=== PATIENT | male | born 1945 | race Hispanic/Latino ===

== ENCOUNTER 2018-01-01 21:14 | Inpatient (IN) | payer MEDICARE, OTHER ==
[2018-01-01 21:48] LABS: #Eosinphils 0.1 thou/uL (0.0-0.7); #Lymphocytes 1.6 thou/uL (1.20-3.40); #Monocytes 0.9 thou/uL (0.11-0.59); #Neutrophils 5.2 thou/uL (1.40-6.50); %Basophils 0.5 % (0.0-1.0); %Eosinophils 1.4 % (0.0-10.0); %Lymphocytes 20.7 % (21.0-51.0); %Monocytes 11.7 % (0.0-10.0); %Neutrophils 65.7 % (42.0-75.0); Hemoglobin 7.2 g/dL (14.0-18.0); Mean Corpuscular Hemoglobin 31.9 pg (27.0-31.0); Mean Corpuscular Volume 96.5 fL (78.0-98.0); Mean Platelet Volume 8.8 fL (7.4-10.4); Platelet Count 191 thou/uL (130-400); RBC Distribution Width 14.7 % (11.5-14.5); Red Blood Cell (RBC) Count 2.25 mill/uL (4.70-6.10); White Blood Cell (WBC) Count 7.9 thou/uL (4.8-10.8)
--- NOTE | 2018-01-01 22:02 | RAD ---
UPRIGHT PORTABLE CHEST ONE VIEW: 01/01/18 HISTORY: 72-year-old male with history of chest pain. Black and bright red stool for three days. Monitor leads overlie the chest. The heart size is normal. The lungs are clear. IMPRESSION: No acute intrathoracic disease. Atherosclerosis of the aorta. POS: RRE
[2018-01-01 22:08] LABS: ALT (SGPT) 12 U/L (8-55); AST (SGOT) 12 U/L (5-34); Albumin 3.1 g/dL (3.4-4.8); Alkaline Phosphatase 66 U/L (40-150); Anion Gap 15 mmol/L (10-20); BUN (Urea Nitrogen) 30 mg/dL (8.4-25.7); Bilirubin, Total 0.4 mg/dL (0.2-1.2); Calc. Creatinine Clearance 0 mL/min (70-130); Calcium 8.6 mg/dL (7.8-10.44); Carbon Dioxide 26 mmol/L (23-31); Chloride 98 mmol/L (98-107); Estimated GFR-MDRD 8; Globulin 3.6 g/dL (2.4-3.5); Glucose 115 mg/dL (83-110); Potassium 4.3 mmol/L (3.5-5.1); Protein, Total 6.7 g/dL (5.8-8.1); Sodium 135 mmol/L (136-145)
--- NOTE | 2018-01-01 23:25 | PDOC.FPRHP ---
- History of Present Illness Chief Complaint: rectal bleeding History of Present Illness: Patient is a 72YO gentleman with a PMH significant for DMII, CAD & ESRD on MWF HD who presented to the ED - History PMHx: PSHx: FHx: Social: - Vital signs BP: [] HR: [] RR: [] Tmax: [] Pox: []% on [] Wt: [] FMR H&P: Results - Labs Result Diagrams: 01/01/18 21:40 01/01/18 21:40 Lab results: WBC 7.9 thou/uL (4.8-10.8) 01/01/18 21:40 Hgb 7.2 g/dL (14.0-18.0) L 01/01/18 21:40 Hct 21.7 % (42.0-52.0) L 01/01/18 21:40 MCV 96.5 fL (78.0-98.0) 01/01/18 21:40 Plt Count 191 thou/uL (130-400) 01/01/18 21:40 Neutrophils % 65.7 % (42.0-75.0) 01/01/18 21:40 Sodium 135 mmol/L (136-145) L 01/01/18 21:40 Potassium 4.3 mmol/L (3.5-5.1) 01/01/18 21:40 Chloride 98 mmol/L (98-107) 01/01/18 21:40 Carbon Dioxide 26 mmol/L (23-31) 01/01/18 21:40 BUN 30 mg/dL (8.4-25.7) H 01/01/18 21:40 Creatinine 6.88 mg/dL (0.6-1.3) H 01/01/18 21:40 Glucose 115 mg/dL (83-110) H 01/01/18 21:40 Calcium 8.6 mg/dL (7.8-10.44) 01/01/18 21:40 Total Bilirubin 0.4 mg/dL (0.2-1.2) 01/01/18 21:40 AST 12 U/L (5-34) 01/01/18 21:40 ALT 12 U/L (8-55) 01/01/18 21:40 Alkaline Phosphatase 66 U/L (40-150) 01/01/18 21:40 Serum Total Protein 6.7 g/dL (5.8-8.1) 01/01/18 21:40 Albumin 3.1 g/dL (3.4-4.8) L 01/01/18 21:40 FMR H&P: Upper Level - Plan Date/Time: 01/01/18 8665 I, [], have evaluated this patient and agree with findings/plan as outlined by manufacturing intern resident. Pertinent changes/additions are listed here.
[2018-01-02 00:22] LABS: Iron 46 ug/dL (65-175); Iron Binding Capacity, Total 174 mcg/dL (261-462)
[2018-01-02] MEDS ORDERED: Dextrose 50% Abboject 50 ML SYRINGE SLOW IVP PRN (00:45)
[2018-01-02] MEDS ORDERED: Ondansetron PF 4 MG/2 ML Vial IVP PRN (00:45)
[2018-01-02] MEDS ORDERED: Dextrose 5% in Water 1,000 ML IV PRN (00:45)
[2018-01-02] MEDS ORDERED: Acetaminophen 650 MG in Premix Bag 1 BAG IVPB PRN (00:45)
[2018-01-02] MEDS ORDERED: Sodium Chloride 0.9% 1,000 ML IV SCH (00:45)
--- NOTE | 2018-01-02 00:45 | PDOC.EVN ---
Event Note - Event Note Event Note: Spoke w/ Dr. Genao who discussed patient's case with Nancy who has previously admitted the patient multiple times. Sound will now resume care.
[2018-01-02 01:11] VITALS: BMI 28.6
[2018-01-02 01:17] LABS: #Eosinphils 0.1 thou/uL (0.0-0.7); #Lymphocytes 1.5 thou/uL (1.20-3.40); #Monocytes 0.8 thou/uL (0.11-0.59); %Basophils 0.5 % (0.0-1.0); %Lymphocytes 20.2 % (21.0-51.0); %Monocytes 10.6 % (0.0-10.0); %Neutrophils 67.6 % (42.0-75.0); Hemoglobin 6.9 g/dL (14.0-18.0); Mean Corpuscular HGB CONC 32.8 g/dL (32.0-36.0); Mean Corpuscular Hemoglobin 31.7 pg (27.0-31.0); Mean Corpuscular Volume 96.5 fL (78.0-98.0); Mean Platelet Volume 9.3 fL (7.4-10.4); Platelet Count 197 thou/uL (130-400); RBC Distribution Width 14.5 % (11.5-14.5); Red Blood Cell (RBC) Count 2.18 mill/uL (4.70-6.10); White Blood Cell (WBC) Count 7.4 thou/uL (4.8-10.8)
[2018-01-02] MEDS: Lactated Ringer's 1,000 ML IV SCH ×2 (01:54→11:17)
[2018-01-02 04:46] LABS: Hemoglobin 7.9 g/dL (14.0-18.0); Mean Corpuscular Hemoglobin 31.8 pg (27.0-31.0); Mean Corpuscular Volume 96.4 fL (78.0-98.0); Mean Platelet Volume 9.2 fL (7.4-10.4); Platelet Count 165 thou/uL (130-400); RBC Distribution Width 14.1 % (11.5-14.5); Red Blood Cell (RBC) Count 2.49 mill/uL (4.70-6.10); White Blood Cell (WBC) Count 7.5 thou/uL (4.8-10.8)
[2018-01-02 04:55] LABS: Anion Gap 17 mmol/L (10-20); BUN (Urea Nitrogen) 32 mg/dL (8.4-25.7); Calc. Creatinine Clearance 10 mL/min (70-130); Calcium 8.2 mg/dL (7.8-10.44); Carbon Dioxide 21 mmol/L (23-31); Chloride 100 mmol/L (98-107); Estimated GFR-MDRD 7; Glucose 133 mg/dL (83-110); Potassium 4.7 mmol/L (3.5-5.1); Sodium 133 mmol/L (136-145)
[2018-01-02 04:58] LABS: Folate (Folic Acid) 15.7 ng/mL (7.0-31.4)
[2018-01-02] MEDS: Pantoprazole 40 MG VIAL IVP SCH ×2 (08:33→20:56)
[2018-01-02] MEDS ORDERED: Pantoprazole 40 MG VIAL IVP SCH (09:00)
[2018-01-02] MEDS ORDERED: Prevnar 13-Val Conj/PF 0.5 ML SYRINGE IM ONE (09:00)
[2018-01-02 09:22] LABS: Hemoglobin 7.4 g/dL (14.0-18.0); Mean Corpuscular HGB CONC 33.3 g/dL (32.0-36.0); Mean Corpuscular Hemoglobin 32.1 pg (27.0-31.0); Mean Corpuscular Volume 96.3 fL (78.0-98.0); Mean Platelet Volume 9.2 fL (7.4-10.4); Platelet Count 175 thou/uL (130-400); RBC Distribution Width 14.3 % (11.5-14.5)
--- NOTE | 2018-01-02 11:31 | HP ---
CHIEF COMPLAINT: Rectal bleeding. HISTORY OF PRESENT ILLNESS: This is a 72-year-old male with past medical history of TN, diabetes alexis litus type 2, hypertension presenting with bright red blood per rectum. Per the patient, he started taking medication that helps him move his bowels and since he started taking the medication, the sarahi ent states that he has been having bright red blood every time when he uses the bathroom. The patien t stated that it has been going on for the past couple of days and on the day of admission, the patie nt states that there was bright red blood in the bathroom and it was severe and this prompted the ED visit. The patient states that he was very worried that he might be losing all his blood. The patie nt endorses feeling very tired, otherwise denies any fever, nausea, vomiting, chest pain, palpitation , abdominal pain, hematuria, dysuria. Of note, the patient recently had pneumonia and NSTEMI and was sent to rehabilitation. Patient was started on aspirin and Plavix. REVIEW OF SYSTEMS: Positive for bright red blood per rectum and generalized weakness. Otherwise, as documented in HPI, all systems were reviewed and are negative. FAMILY HISTORY: Reviewed and noncontributory to this visit. PAST MEDICAL HISTORY: CAD, diabetes mellitus type 2, TN, hypertension. 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 PSYCHIATRIC HISTORY: No psychiatric history. SOCIAL HISTORY: The patient denies illicit drug use. The patient denies alcohol use. The patient d enies any smoking history. ALLERGIES: The patient does not have any drug allergies. CURRENT MEDICATIONS: The patient takes, 1. MiraLax 17 grams. 2. Protonix 40 mg. 3. Procardia 120 mg. 4. Levothyroxine 75 mcg. 5. Isosorbide mononitrate 30 mg. 6. Folic acid 1 mg. 7. Clopidogrel 75 mg. 8. Vitamin D3 1000 units. 9. Cefdinir 300 mg. 10. Carvedilol 3.125 b.i.d. 11. Calcium acetate 667 mg t.i.d. 12. Atorvastatin 20 mg. 12. Aspirin 81 mg. PHYSICAL EXAMINATION: VITAL SIGNS: Blood pressure is 118/50, pulse is 79, respiratory rate of 16, temperature of 98.9, oxy gen saturation of 100. GENERAL: Patient is lying in bed comfortably, does not appear to be in any acute distress. The sarahi ent is receiving packed red blood cells at this time. HEENT: Normocephalic, atraumatic. Pupils are equally, round and reactive to light. Extraocular mov ements are intact. No sclerae icterus. No conjunctival pallor. NECK: Trachea is midline. Full range of motion. No JVD. Supple. LUNGS: Clear to auscultation bilaterally. No wheezing, no rales, no rhonchi is appreciated. CARDIOVASCULAR: Positive S1, S2, regular rate and rhythm. No murmurs, no gallops or rubs appreciate d. ABDOMEN: Soft, nontender, nondistended. Positive bowel sounds in all quadrants. EXTREMITIES: The patient has 5/5 upper extremity strength, 5/5 lower extremity strength. Good sensa tion bilaterally in the upper and lower extremities. The patient has good pulses and no edema noted. NEUROLOGIC: Cranial nerves II through XII grossly intact. No neurologic deficits noted. SKIN: Warm, dry, and intact. No rashes noted. Patient do have some pale . PSYCHIATRIC: The patient is alert, oriented x3, very pleasant and normal affect. IMAGING: Chest x-ray shows no acute intrathoracic disease. LABORATORY DATA: WBC 7.9, hemoglobin is 7.2, hematocrit of 21.7, platelet count 191. Sodium is 135, potassium is 4.3, chloride is 98, carbon dioxide 26, anion gap of 15, BUN is 30, creatinine is 6.88, GFR of 8, glucose is 115, calcium is 8.6. Iron is 46, TIBC is 174. AST is 12, ALT is 12. ASSESSMENT AND PLAN: This is a 72-year-old male being admitted for: 1. Anemia of acute blood loss. The patient is having GI bleed at this time, most likely lower gastr ointestinal bleed. At this point, we have consulted GI. We will admit the patient n.p.o. We are go ing to follow up with GI's recommendations. We will continue the patient on IV fluids. . We will h old the patient's aspirin and Plavix. We will continue to monitor the patient closely. 2. Anemia of chronic disease. The patient will benefit from epoetin. We will follow up on ferritin levels. We will follow up with Nephrology's recommendations. 3. End-stage renal disease on hemodialysis on Friday, Wednesdays and Fridays. At this point, the yamilet pennington will undergo hemodialysis. 4. Diabetes mellitus type 2. We will continue insulin sliding scale. We will monitor the patient's blood glucose closely. We will adjust the patient's sliding scale accordingly. 5. History of hypertension. Currently, the patient's blood pressure is controlled. We will monitor the patient's blood pressure closely and we will give patient his home blood pressure medications. 6. Deep venous thrombosis and gastrointestinal prophylaxis.
[2018-01-02] MEDS ORDERED: GoLYTELY 4,000 ml Bottle PO SCH (18:00)
--- NOTE | 2018-01-02 18:11 | CON ---
DATE OF CONSULTATION: 01/02/2018 REASON FOR CONSULTATION: Melena, hematochezia. CONSULTING PHYSICIAN: Dr. Rogers Genao. HISTORY OF PRESENT ILLNESS: The patient is a 72-year-old male with past medical history of coronary artery disease, diabetes, recent NSTEMI, myocardial infarction, hypertension, and end-stage renal dis ease on hemodialysis who presented with complaints of hematochezia. Upon chart review, the patient w as recently admitted to the hospital and diagnosed with pneumonia and NSTEMI for which he was ultimat ilana placed on full anticoagulation and sent to rehabilitation after that particular visit. However, approximately 3 days ago he experienced the acute onset of bright red blood per rectum, characterized as blood present on the toilet paper and in the toilet with larger amounts of bright red blood, both coating and mixed in with the stool. He also endorses increased frequency of solid black stools ove r the last 3-5 days. They were easy to wipe and no difficulty with defecation. He further adds that he has been having approximately 1-3 solid to semisolid bowel movements over the last 3-4 days with the appearance of bright red blood with almost every bowel movement. Otherwise, he denies any furthe r symptoms including nausea, vomiting, fevers, chills, abdominal pain, hematemesis, dysphagia, odynop hagia, or weight loss. Of note, he was placed on both aspirin and Plavix for treatment of his NSTEMI with the appearance of the blood shortly after starting these medications. Of note, the patient's last colonoscopy was approximately 5 years ago and was normal per patient. He denies any family history of colon polyps or colon cancer. REVIEW OF SYSTEMS: A 10-category review of systems was obtained with all responses negative except f or the pertinent positives as listed in the HPI. PAST MEDICAL HISTORY: As per HPI. PAST SURGICAL HISTORY: Right below-knee amputation, left arm surgery, back surgery, umbilical hernia repair. FAMILY HISTORY: Denies any GI malignancies. SOCIAL HISTORY: Denies any tobacco, alcohol or illicit drug use. OUTPATIENT MEDICATIONS: Reviewed. ALLERGIES: No known drug allergies. PHYSICAL EXAMINATION: VITAL SIGNS: Temperature 98.3, pulse 81, blood pressure 113/54, respiratory rate 16, satting 98% on room air. GENERAL: The patient was lying in bed in no acute distress. He is alert and oriented x4. NECK: Supple. No JVD noted. CARDIOVASCULAR: Regular rate and rhythm with no discernible murmurs, gallops or rubs, although he di d have a slight systolic murmur radiating into the left arm consistent with the arteriovenous fistula for hemodialysis. PULMONARY: Clear to auscultation bilaterally with no discernible wheezes or rales. ABDOMEN: Normoactive bowel sounds, soft, nontender, nondistended. EXTREMITIES: No cyanosis, clubbing or edema. Right below-knee amputation noted. LABORATORY DATA: CBC with a white blood cell count of 7, hemoglobin 7.4, hematocrit 22.1, platelets 175. Chemistry with a sodium of 133, potassium 4.7, chloride 100, CO2 of 21, BUN 32, creatinine 7.29 , glucose 140, AST 12, ALT 12, alkaline phosphatase 66, total bilirubin 0.4. Serum iron 46, TIBC 174 . IMAGING DATA: Chest x-ray obtained on 01/01/2018 showed no acute intrathoracic process or disease, a rteriosclerosis of the aorta was noted. ASSESSMENT AND PLAN: The patient is a 72-year-old male with past medical history of coronary artery disease, status post myocardial infarction/[id number] myocardial infarction within the last 2 w eeks, diabetes, hypertension, and end-stage renal disease on hemodialysis, presenting with complaints of GI bleeding. GI bleeding: The patient was recently admitted to the hospital with diagnoses of pneumonia in both n [id number] myocardial infarction and ultimately placed on full anticoagulation with aspirin and Plavix. He was ultimately discharged to a rehab facility and while in the rehabilitation facility be randolph to notice darker black colored solid stools that was accompanied bright red blood per rectum, dori racterized more as bright red blood clots, seen either coating the stool or mixed in with the stool. He denies any other overt GI bleeding symptoms nor does he endorse any abdominal pain or change in h is bowel habits otherwise. Upon review of his iron indices, he does have anemia of chronic disease/r enal disease, but given his acute onset of the bleeding, it will not necessarily be reflected in lab as of yet. Given the dark black stools with very solid consistency, it is not necessarily reminiscen t of melenic type stools, but an upper GI bleeding source cannot be ruled out at this time. RECOMMENDATIONS: 1. We would continue to trend H&H and transfuse as necessary to maintain an H&H of 08/30. 2. Continue to monitor clinically for signs of active gastrointestinal bleeding. 3. We would place the patient on clear liquid diet tonight with GoLYTELY prep later on this evening in preparation for both EGD and colonoscopy tomorrow morning for evaluation of melena and hematochezi a respectively. 4. We would hold Plavix for now, but the patient will need to be placed back on this medication in t he near future given his recent history of NSTEMI. We will continue to follow. Please call with any questions.
[2018-01-02 19:58] LABS: #Eosinphils 0.1 thou/uL (0.0-0.7); #Lymphocytes 1.8 thou/uL (1.20-3.40); #Monocytes 1.1 thou/uL (0.11-0.59); #Neutrophils 9.5 thou/uL (1.40-6.50); %Basophils 0.2 % (0.0-1.0); %Eosinophils 0.6 % (0.0-10.0); %Lymphocytes 14.1 % (21.0-51.0); %Monocytes 8.4 % (0.0-10.0); %Neutrophils 76.7 % (42.0-75.0); Hemoglobin 6.9 g/dL (14.0-18.0); Mean Corpuscular HGB CONC 33.9 g/dL (32.0-36.0); Mean Corpuscular Hemoglobin 32.6 pg (27.0-31.0); Mean Corpuscular Volume 96.1 fL (78.0-98.0); Mean Platelet Volume 9.1 fL (7.4-10.4); Platelet Count 182 thou/uL (130-400); RBC Distribution Width 14.4 % (11.5-14.5); Red Blood Cell (RBC) Count 2.11 mill/uL (4.70-6.10); White Blood Cell (WBC) Count 12.4 thou/uL (4.8-10.8)
--- NOTE | 2018-01-02 23:33 | PDOC.PN ---
- Subjective Encounter Start Date: 01/02/18 Encounter Start Time: 19:00 Subjective: nsg notes rev, jesenia ovn, no new c/o, family at bedside, denies any abd pain/ -: cp/ sob at this point in time. no lightheadedness. roberto clear liq diet - Objective Resuscitation Status: Resuscitation Status FULL:Full Resuscitation Vital Signs & Weight: Vital Signs (12 hours) Temp Pulse Pulse Resp BP BP Pulse Ox 01/02/18 17:02 103 H 122/60 01/02/18 15:35 96.7 F L 100 16 158/67 H 95 Weight Weight 167 lb I&O: 01/01/18 01/02/18 01/03/18 06:59 06:59 06:59 Intake Total 350 887 Output Total 0 Balance 350 887 Result Diagrams: 01/03/18 01:46 01/02/18 04:14 Additional Labs: Accuchecks 01/02/18 01/02/18 01/02/18 20:41 16:48 05:31 POC Glucose 161 H 133 H 140 H Phys Exam - Physical Examination Constitutional: NAD seated in hospital bed HEENT: PERRLA, moist MMs Respiratory: no wheezing, no rales, no rhonchi, clear to auscultation bilateral Cardiovascular: RRR, no significant murmur, no rub Gastrointestinal: soft, non-tender, positive bowel sounds Neurological: moves all 4 limbs amputation noted Psychiatric: normal affect, A&O x 3 Dx/Plan - Plan * GIB * apprec GI c/s - plan for colo in AM, pt currently drinking prep w/o difficulty * closely monitor serial H/H Q8H (prev 4 H/H have remained stable s/p pRBC transfusion) * hemodynamically stable, clear liq diet * * hx CV dz incl CAD and AoS * continue with current regimen - home anticoagulation on HOLD 2/2 GIB above, will need cardiology rec for medication recommendation moving forward as pt has severe disease and was prev rec for med mgmt as a bridge to potential surg * * diet: clear liq diet * activity: as roberto * dvt ppx * * d/w pt and family at bedside Review of Systems - Medications/Allergies Allergies/Adverse Reactions: Allergies Allergy/AdvReac Type Severity Reaction Status Date / Time No Known Drug Allergies Allergy Verified 01/02/18 00:31 Medications: Current Medications Dextrose/Water (Dextrose 50%) 25 gm SLOW IVP PRN PRN PRN Reason: Hypoglycemia Glucagon (Glucagon) 1 mg IM PRN PRN PRN Reason: Hypoglycemia Acetaminophen 650 mg/ Device 65 mls @ 400 mls/hr IVPB Q6H PRN PRN Reason: Fever > 101 Stop: 01/03/18 00:46 Dextrose/Water (D5w) 1,000 mls @ 0 mls/hr IV .Q0M PRN PRN Reason: Hypoglycemia Insulin Human Regular (Humulin R) 0 units SC .MILD SLIDING SCALE PRN PRN Reason: Mild Correctional Scale Ondansetron HCl (Zofran) 4 mg IVP Q6H PRN PRN Reason: Nausea/Vomiting Pantoprazole Sodium (Protonix) 40 mg IVP Q12HR DERIAN Last Admin: 01/02/18 20:56 Dose: 40 mg Polyethylene Glycol/Electrolytes (Golytely) 4,000 ml PO 1800 DERIAN Stop: 01/02/18 23:59 Last Admin: 01/02/18 17:17 Dose: 4,000 ml Sodium Chloride (Flush - Normal Saline) 10 ml IVF PRN PRN PRN Reason: Saline Flush Last Admin: 01/02/18 08:33 Dose: 10 ml
[2018-01-03 02:22] LABS: #Lymphocytes 1.3 thou/uL (1.20-3.40); #Monocytes 0.8 thou/uL (0.11-0.59); #Neutrophils 5.7 thou/uL (1.40-6.50); %Basophils 0.3 % (0.0-1.0); %Eosinophils 0.5 % (0.0-10.0); %Lymphocytes 16.8 % (21.0-51.0); %Monocytes 10.3 % (0.0-10.0); %Neutrophils 72.1 % (42.0-75.0); Hemoglobin 5.8 g/dL (14.0-18.0); Mean Corpuscular HGB CONC 33.8 g/dL (32.0-36.0); Mean Corpuscular Hemoglobin 32.4 pg (27.0-31.0); Mean Corpuscular Volume 95.9 fL (78.0-98.0); Mean Platelet Volume 9.3 fL (7.4-10.4); Platelet Count 152 thou/uL (130-400); RBC Distribution Width 14.8 % (11.5-14.5); Red Blood Cell (RBC) Count 1.78 mill/uL (4.70-6.10); White Blood Cell (WBC) Count 7.9 thou/uL (4.8-10.8)
[2018-01-03] MEDS ORDERED: Epoetin (ESRD) 20,000 UNITS/ML SC SCH (09:00)
[2018-01-03] MEDS: Pantoprazole 40 MG VIAL IVP SCH ×2 (09:03→20:52)
[2018-01-03 10:04] LABS: #Eosinphils 0.1 thou/uL (0.0-0.7); #Monocytes 0.7 thou/uL (0.11-0.59); #Neutrophils 5.1 thou/uL (1.40-6.50); %Basophils 0.5 % (0.0-1.0); %Eosinophils 0.7 % (0.0-10.0); %Lymphocytes 13.9 % (21.0-51.0); %Monocytes 10.2 % (0.0-10.0); %Neutrophils 74.7 % (42.0-75.0); Hemoglobin 8.5 g/dL (14.0-18.0); Mean Corpuscular HGB CONC 33.7 g/dL (32.0-36.0); Mean Corpuscular Hemoglobin 31.7 pg (27.0-31.0); Mean Corpuscular Volume 94.2 fL (78.0-98.0); Mean Platelet Volume 9.5 fL (7.4-10.4); Platelet Count 127 thou/uL (130-400); RBC Distribution Width 13.7 % (11.5-14.5); Red Blood Cell (RBC) Count 2.69 mill/uL (4.70-6.10); White Blood Cell (WBC) Count 6.9 thou/uL (4.8-10.8)
[2018-01-03] MEDS ORDERED: ISOVUE-370 76%-LOCM 1 ML ONE (10:21)
[2018-01-03] MEDS ORDERED: Iopamidol 370 76% 50 ML VIAL FS ONE (10:21)
--- NOTE | 2018-01-03 11:30 | PRG ---
DATE OF SERVICE: 01/03/2018 SUBJECTIVE: The patient is seen and examined at bedside. OBJECTIVE: VITAL SIGNS: Blood pressure is 143/64, pulse 89, respirations 18, temperature 98.2. GENERAL: He is not in any distress during my visit. He does not complain about being weak and short of breath. He is still having some melena. HEENT: Atraumatic, normocephalic. Eyes are PERRLA. Sclerae is nonicteric. Conjunctivae pale. Ora l mucosa is moist. NECK: Supple. LUNGS: Clear. HEART: S1, S2 normal, no S3, no S4, no murmur. ABDOMEN: Soft, nontender, mildly distended. There is an umbilical hernia, not incarcerated. Bowel sounds are present, no organomegaly. EXTREMITIES: Right [id number] amputee. No swelling. NEUROLOGIC: He is alert and oriented x4. There are no any motor deficits. LABORATORY DATA: Showed hemoglobin of 7.8, hematocrit 17.1, white count of 7.9, platelet count is 15 2,000. Glycemia is ranging from 133-161. IMPRESSION: 1. Acute gastrointestinal bleeding, unclear source. The patient's hemoglobin is down to 5.8. He is getting transfused with packed red blood cells as we speak. He is going to have EGD and colonoscopy this morning. We will continue close monitorin. Diabetes mellitus, well-controlled. 3. Coronary artery disease, stable. 4. Hypertension. 5. History of myocardial infarction. 6. Anemia of chronic disease. So as I mentioned above, we will continue Protonix IV. He will be tr ansfused with 2 units of packed red blood cells and he will have colonoscopy and EGD this morning.
[2018-01-03] MEDS ORDERED: PROPOFOL 200 MG/20 ML VIAL ONE (11:59)
--- NOTE | 2018-01-03 13:53 | OP ---
DATE OF PROCEDURE: 01/03/2018 PROCEDURES: Esophagogastroduodenoscopy with biopsy, colonoscopy with biopsy. INDICATION FOR PROCEDURE: Hematochezia, melena. DESCRIPTION OF PROCEDURE: After the risks and benefits of the procedures were explained to the patie nt including risks of bleeding, infection, perforation, reactions to anesthesia, aspiration and/or pa in, informed consent was obtained. The patient was then taken to the endoscopy suite where deep pat tion was administered via propofol and anesthesia support. Once adequate sedation was achieved, the standard gastroscope was introduced into the mouth with intubation of the esophagus, stomach and prox imal small intestine with the findings listed below. Upon completion of this portion of the procedur e, all equipment was removed and the bed was then rotated to 180 degrees in preparation for the colon oscopy. After a digital rectal examination was performed. The standard colonoscope was introduced i nto the rectum and advanced to the terminal ileum without difficulty. The quality of the prep was go od, although there was some remaining liquid stool that was amenable to suctioning. The patient tole rated the procedures well with no immediate perioperative complications. After the conclusion of the colonoscopy, all equipment was removed and the patient was transferred to PACU in satisfactory condi tion. EGD FINDINGS: ESOPHAGUS. Normal-appearing mucosa was seen in the proximal and mid esophagus. A 5-6 mm linear ulce ration was seen in the distal esophagus extending proximally from the GE junction. It did exhibit mi ld friability and minimal blood clot formation, but no active or recent bleeding. There was minimall y increased erythema in this region as well, but no overt erosions or ulcerations were seen. STOMACH: Normal-appearing mucosa was seen in the gastric cardia, fundus, body, greater curvature and incisura; however, increased mucosal erythema as well as multiple erosions and what appeared to be a healing ulceration was seen in the gastric antrum. There was no evidence of active/recent bleeding or mass lesions in this region. Multiple biopsies were taken for evaluation of these abnormalities. DUODENUM: Normal-appearing mucosa was seen in both the duodenal bulb and second portion of the duode num. There was no evidence of erosions, ulcerations, mass lesions or active/recent bleeding. IMPRESSION: 1. LA grade B reflux mediated erosive esophagitis. 2. Multiple erosions and what appeared to be a healing ulceration seen in the gastric antrum concern ing for Helicobacter pylori versus non-steroidal anti-inflammatory drug gastritis. 3. No obvious source of melena was seen during this examination. COLONOSCOPY FINDINGS: DIGITAL RECTAL EXAM: Normal findings were seen on external examination. COLON FINDINGS: Normal-appearing mucosa was seen in the terminal ileum up to 10-15 cm past the ileoc ecal valve. Normal-appearing mucosa was seen at the ileocecal valve, appendiceal orifice, cecum and proximal ascending colon. However, at the junction of the ascending and transverse colons (hepatic f lexure), there was a focal area of circumferential increased mucosal erythema as well as small ulcera tions extending about 4-5 cm in length. Multiple biopsies were taken from this region for evaluation and placed in a specimen jar for pathology review. With the biopsies of this region, there was mini mal oozing of blood upon obtaining the biopsies consistent with probable ischemic colitis. Otherwise , the mid and distal transverse colons, descending colon, sigmoid colon and proximal rectum appeared normal; however, in the distal rectum, just past the anal verge, there were multiple large ulceration s, the largest being approximately 3-4 cm in length that exhibited friability with the passage of the colonoscope, but no overt active or recent bleeding. Multiple biopsies were then taken from this re gion as well for histological evaluation. On rectal retroflexion, there were small internal hemorrho ids noted. IMPRESSION: 1. Circumferential region of increased mucosal erythema and small ulceration seen at the hepatic fle xure consistent with ischemic colitis. 2. Multiple large ulcerations seen in the distal rectum also concerning for ischemic colitis versus possible infectious process. 3. Small internal hemorrhoids. RECOMMENDATIONS: 1. We would continue to trend H and H and transfuse as necessary to maintain an H and H of 7/21. 2. Continue to monitor clinically for signs of active gastrointestinal bleeding. 3. We would place the patient on a clear liquid diet and advance as tolerated to a high fiber diet o homero the next 24 hours. 4. I will obtain a CT angiography of the lower abdominal vessels for any stenosis or thrombosis that could potentially contribute to the ischemic colitis seen during examination today. 5. We will follow up on the biopsy results for further evaluation of ischemic colitis versus infecti on. No antibiotics are indicated at this time. 6. Would attempt to maintain normotensive pressures in this patient, especially with history of end- stage renal disease on hemodialysis. We will continue to follow. Please call with any questions.
[2018-01-03 18:00] LABS: #Eosinphils 0.1 thou/uL (0.0-0.7); #Lymphocytes 1.2 thou/uL (1.20-3.40); #Monocytes 0.8 thou/uL (0.11-0.59); #Neutrophils 5.2 thou/uL (1.40-6.50); %Basophils 0.5 % (0.0-1.0); %Eosinophils 1.2 % (0.0-10.0); %Lymphocytes 16.2 % (21.0-51.0); %Monocytes 11.4 % (0.0-10.0); %Neutrophils 70.7 % (42.0-75.0); Hemoglobin 8.1 g/dL (14.0-18.0); Mean Corpuscular HGB CONC 35.4 g/dL (32.0-36.0); Mean Corpuscular Hemoglobin 33.2 pg (27.0-31.0); Mean Corpuscular Volume 93.8 fL (78.0-98.0); Platelet Count 126 thou/uL (130-400); RBC Distribution Width 14.1 % (11.5-14.5); Red Blood Cell (RBC) Count 2.44 mill/uL (4.70-6.10); White Blood Cell (WBC) Count 7.3 thou/uL (4.8-10.8)
--- NOTE | 2018-01-03 21:20 | CT ---
CT ANGIOGRAM ABDOMEN AND PELVIS WITH AND WITHOUT IV CONTRAST WITH 3D RENDERIN01/03/18 HISTORY: 72-year-old male with history of hepatic flexor and rectum ulcers on recent colonoscopy, rectal bleed ing. Minimal interstitial and alveolar parenchymal changes in the right and left lower lobes possibly atypical pneumonia or pneumonitis versus some subsegmental atelectasis with small pleural effusions. Three vessel coronary artery calcific disease. The visualized liver, gallbladder, pancreas, spleen, adrenal glands, are unremarkable. The kidneys are very small bilaterally, but no evidence for hydrone phrosis. There is minimal focal wall thickening involving the right colon. Evidence for nonspecific c olitis. There is abnormal wall thickening of the rectum as well which is nonspecific. Minimal perirec jenni fat stranding as well as minimal fluid and edema changes in the presacral region. There is extens ella calcification of the aorta without evidence of an aneurysm. There is extensive diffuse vascular d isease with extensive calcification throughout the abdomen. 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 There is a patent inferior mesenteric artery. There are gladys ateral narrowed renal arteries. Prominent vascular calcifications of the common iliac and external il iac arteries. There is some minimal nonspecific fat stranding in the right groin. There is a 2.9 cm d iameter dense rim calcified mass at the level of the umbilicus which has a very chronic appeara nce and probably has been present for a long time. Evidence for anterior abdominal wall postsurgical changes. No abscess or significant abnormal fluid collection within the abdomen. IMPRESSION: Very high grade near occlusive changes of the origin of the celiac artery and the proximal superior m esenteric artery with a patent inferior mesenteric artery. Abnormal nonspecific wall thickening of th e right colon and rectum. Nonspecific fat stranding in the right groin. Patchy parenchymal changes in the right and left lower lung zones possibly minimal pneumonitis or subsegmental atelectasis with po ssibly small pleural effusions. POS: KG
[2018-01-04 02:14] LABS: #Eosinphils 0.1 thou/uL (0.0-0.7); #Lymphocytes 1.1 thou/uL (1.20-3.40); #Monocytes 0.8 thou/uL (0.11-0.59); #Neutrophils 6.2 thou/uL (1.40-6.50); %Basophils 0.4 % (0.0-1.0); %Eosinophils 1.3 % (0.0-10.0); %Lymphocytes 12.8 % (21.0-51.0); %Monocytes 9.8 % (0.0-10.0); %Neutrophils 75.7 % (42.0-75.0); Hemoglobin 8.4 g/dL (14.0-18.0); Mean Corpuscular HGB CONC 34.3 g/dL (32.0-36.0); Mean Corpuscular Hemoglobin 32.2 pg (27.0-31.0); Mean Corpuscular Volume 93.9 fL (78.0-98.0); Mean Platelet Volume 9.2 fL (7.4-10.4); Platelet Count 134 thou/uL (130-400); RBC Distribution Width 14.5 % (11.5-14.5); Red Blood Cell (RBC) Count 2.62 mill/uL (4.70-6.10); White Blood Cell (WBC) Count 8.2 thou/uL (4.8-10.8)
[2018-01-04] MEDS: Levothyroxine Sodium 75 MCG TAB PO SCH (05:36)
[2018-01-04] MEDS: Pantoprazole 40 MG VIAL IVP SCH ×2 (09:31→21:18)
[2018-01-04 10:09] LABS: #Eosinphils 0.1 thou/uL (0.0-0.7); #Lymphocytes 1.2 thou/uL (1.20-3.40); #Monocytes 0.9 thou/uL (0.11-0.59); #Neutrophils 6.3 thou/uL (1.40-6.50); %Basophils 0.5 % (0.0-1.0); %Eosinophils 1.5 % (0.0-10.0); %Lymphocytes 14.1 % (21.0-51.0); %Monocytes 10.2 % (0.0-10.0); %Neutrophils 73.5 % (42.0-75.0); Mean Corpuscular HGB CONC 34.3 g/dL (32.0-36.0); Mean Corpuscular Hemoglobin 32.3 pg (27.0-31.0); Mean Corpuscular Volume 94.3 fL (78.0-98.0); Mean Platelet Volume 9.1 fL (7.4-10.4); Platelet Count 131 thou/uL (130-400); RBC Distribution Width 14.2 % (11.5-14.5); Red Blood Cell (RBC) Count 2.49 mill/uL (4.70-6.10); White Blood Cell (WBC) Count 8.5 thou/uL (4.8-10.8)
--- NOTE | 2018-01-04 12:57 | PRG ---
DATE OF SERVICE: 01/03/2018 REASON FOR CONSULTATION: Melena, hematochezia. SUBJECTIVE: The patient did well overnight with no acute events or problems. He states that his hem atochezia has since resolved since the colonoscopy yesterday with no further recurrences. Currently, denies any nausea, vomiting, fevers, chills, shortness of breath, abdominal pain, melena, hematochez ia or hematemesis. OBJECTIVE: VITAL SIGNS: Temperature 97.8, pulse 86, blood pressure 177/72, respiratory rate 16, satting 94% on room air. GENERAL: The patient was lying in bed, in no acute distress. Alert and oriented x4. CARDIOVASCULAR: Regular rate and rhythm. RESPIRATORY: Clear to auscultation bilaterally. ABDOMEN: Normoactive bowel sounds, soft, nontender, nondistended. EXTREMITIES: No cyanosis, clubbing or edema. Right szlur-eff-espz amputation was also noted. LABORATORY DATA: CBC with a white blood cell count of 8.2, hemoglobin 8.4, hematocrit 24.6, platelet s 134,000 (H and H is stable when compared to previous). IMAGING DATA: EGD and colonoscopy performed on 01/03/2018 showed mild irritation of the gastric antr um with possible healing ulcerations with biopsies taken for further evaluation. However, within the colon, there were 2 areas of increased mucosal erythema and ulceration at both the hepatic flexure a s well as increased size of ulcerations in the rectum. Both sites were concerning for ischemic colit is with biopsies pending at this time. However, a CT of the abdomen and pelvis was obtained on 01/03, which showed very high grade near occlusive changes of the origin of the celiac artery and pro ximal superior mesenteric artery with a patent inferior mesenteric artery. This was seen along with extensive diffuse vascular disease with extensive calcification throughout the abdomen. ASSESSMENT AND PLAN: The patient is a 72-year-old male with past medical history of coronary artery disease, status post myocardial infarction/non-ST elevation myocardial infarction, diabetes, hyperten mark and end-stage renal disease on hemodialysis, presenting with complaints of gastrointestinal blee ding. Gastrointestinal bleeding/ischemic colitis: The patient was recently admitted to the hospital in 2017 with the diagnoses of pneumonia and a non-ST elevation myocardial infarction and placed on full anticoagulation with aspirin and Plavix. He was ultimately discharged to a rehab facility and while in the rehab facility, he began to notice darker colored stools concerning for melena and/or hematoch ezia. He was subsequently readmitted to the hospital with EGD and colonoscopy performed on 8. The upper endoscopy was relatively negative, but changes indicative of ischemic colitis were seen on the colonoscopy at both the hepatic flexure and within the rectum. CT angiography performed on 03/05/2017 also showed extensive vascular disease throughout the abdomen as well as near occlusive dori nges at the celiac and superior mesenteric artery takeoffs. At this point, the more likely reason fo r his recent hematochezia is related to ischemic colitis, which may have been due to either his recen t non-ST elevation myocardial infarction with hypotensive states experience during that time or durin g hemodialysis, he may be experiencing transient episodes of hypotension, which then decrease blood f low to these areas in an already low blood flow state. RECOMMENDATIONS: 1. We would continue to trend H and H and transfuse as necessary to maintain an H and H of 08/30 whil e inpatient. 2. Continue to monitor clinically for signs of active GI bleeding. 3. We would restart anticoagulation within the next 24 hours given his recent NSTEMI and presence of extensive vascular disease, which could then contribute to ischemic colitis. 4. Would attempt to avoid any episodes of hypotension, especially during dialysis. 5. If the patient continues to have episodes of hematochezia consistent with ischemic colitis, I wonolan rodgers then recommend Vascular Surgery evaluation for possible endovascular repair/stent placement. We will sign off at this time. Please call with any questions
--- NOTE | 2018-01-04 17:09 | PRG ---
DATE OF SERVICE: 01/04/2018 SUBJECTIVE: The patient seen and examined during hemodialysis. He does not have much complaints to offer. He is feeling fine. He denies any chest pain or weakness. He denies any melena. OBJECTIVE: VITAL SIGNS: Blood pressure is 177/72, O2 saturation is 94% on room air, temperature is 97.8, pulse is 86, and respiratory rate is 16. Maximal temperature is 99.3. HEENT: Atraumatic, normocephalic. Eyes, PERRLA. Sclerae are nonicteric. Oral mucosa is moist. NECK: Supple. LUNGS: Clear. HEART: S1, S2 normal. ABDOMEN: Soft, obese, nontender. Bowel sounds are present. No organomegaly. EXTREMITIES: No clubbing, cyanosis or edema. He has below the knee, right side amputation. NEUROLOGIC: He is alert and oriented x4. There is no any motor deficits. Cranial nerves are intact . LABORATORY DATA: Showed hemoglobin of 8.0, hematocrit 23.5, platelet count 131,000, white count of 8 .5[address] Glycemia [address] of the abdomen and pelvis showed very high grade near occlusive changes of the origin of the celiac artery and the proximal superior mesenteric artery with a patent inferio r mesenteric artery. Also, there was abnormal nonspecific wall thickening of the right colon and rec luisa and nonspecific fat stranding in the right groin, there were patchy parenchymal changes in the ri ght and left lower lobe lung zones, possibly minimal pneumonitis of subsegmental atelectasis with pos sibly small pleural effusions. IMPRESSION: 1. Gastrointestinal bleeding/ischemic colitis. 2. Anemia requiring blood transfusion. 3. End-stage renal disease on hemodialysis. 4. Hypertension. 5. Diabetes mellitus. 6. Coronary artery disease, status post recent myocardial infarction/[id number] myocardial inf arction. DISCUSSION: The patient underwent EGD and colonoscopy on 01/03/2018, which showed some ischemic coli tis in hepatic flexure and within this rectum and CT angiogram was performed yesterday, which showed extensive vascular disease throughout the abdomen as well as near occlusive changes at the celiac and superior mesenteric artery takeoff, which is most likely cause of his ischemic colitis. We know sarai t he experienced some hypotensive states during his hemodialysis. The patient is doing significantly better today. He does not have more melena. Gastroenterology recommends to keep close monitoring o f his hemoglobin. We will have H and H series every morning. Also, he recommends to restart his ant iplatelet regimen since he have a heart attack recently and this can be done in the next 24 hours if he does not have any signs of blood loss. Also, we will continue PPI inhibitors since his EGD showed grade B reflux mediated erosive esophagitis and multiple erosions and some healing ulcerations in th e gastric antrum. The biopsies were taken, but this was not obvious source of bleeding.
[2018-01-04] MEDS ORDERED: Carvedilol 3.125 MG TAB PO SCH ×2 (17:30→21:00)
[2018-01-04] MEDS: Insulin Regular 300 UNITS/3 ML VIAL SC PRN (18:04)
[2018-01-04] MEDS ORDERED: Insulin Regular 300 UNITS/3 ML VIAL SC PRN (21:38)
[2018-01-05] MEDS: Levothyroxine Sodium 75 MCG TAB PO SCH (06:00)
--- NOTE | 2018-01-05 10:58 | PDOC.PN ---
- Subjective Encounter Start Date: 01/05/18 Encounter Start Time: 10:56 Mr. Penn was seen today in follow-up of GI bleed. He is currently on dialysis. He denies any abdominal pain, or nausea or dark stools. - Objective Resuscitation Status: Resuscitation Status FULL:Full Resuscitation MAR Reviewed: Yes Vital Signs & Weight: Vital Signs (12 hours) Temp Pulse Resp BP BP Pulse Ox 01/05/18 07:25 77 20 144/67 H 96 01/05/18 03:05 98.2 F 71 15 136/65 98 01/04/18 23:30 120/59 L Weight Weight 157 lb I&O: 01/04/18 01/05/18 01/06/18 06:59 06:59 06:59 Intake Total 1970 680 Output Total 200 500 Balance 1770 180 Result Diagrams: 01/05/18 04:23 01/02/18 04:14 Additional Labs: Accuchecks 01/04/18 01/04/18 20:06 16:43 POC Glucose 225 H 175 H Phys Exam - Physical Examination HEENT: PERRLA Respiratory: no wheezing, no rales, no rhonchi, clear to auscultation bilateral Cardiovascular: RRR, no significant murmur, no rub Gastrointestinal: soft, non-tender, no distention, positive bowel sounds Musculoskeletal: no edema Dx/Plan (1) Lower GI bleed Code(s): K92.2 - GASTROINTESTINAL HEMORRHAGE, UNSPECIFIED Status: Acute (2) Ischemic colitis Code(s): K55.9 - VASCULAR DISORDER OF INTESTINE, UNSPECIFIED Status: Acute (3) Coronary artery disease (CAD) excluded Code(s): Z03.89 - ENCNTR FOR OBS FOR OTH SUSPECTED DISEASES AND COND RULED OUT Status: Chronic (4) ESRD (end stage renal disease) on dialysis Code(s): N18.6 - END STAGE RENAL DISEASE; Z99.2 - DEPENDENCE ON RENAL DIALYSIS Status: Chronic (5) Hypertension Code(s): I10 - ESSENTIAL (PRIMARY) HYPERTENSION Status: Chronic (6) Diabetes mellitus type 2 in nonobese Code(s): E11.9 - TYPE 2 DIABETES MELLITUS WITHOUT COMPLICATIONS Status: Chronic - Plan * GI- Bleed- EGD and Colonoscopy findings noted. His H&H has been stable- Will re-start aspirin and plavix today * CAD - stable- no complaints of any chest pain- re-starting aspirin, plavix and lipitor today * HTN- blood pressure is stable. * DM- blood glucose is stable * ESRD on dialysis- stable- re-start renal replacement medications
[2018-01-05] MEDS: Polyethylene Glycol 3350 17 GM Packet PO SCH (12:26)
[2018-01-05] MEDS: Calcium Acetate 667 MG CAP PO SCH ×2 (12:27→18:31)
[2018-01-05] MEDS: Atorvastatin Calcium 20 MG TAB PO SCH (12:27)
[2018-01-05] MEDS: Pantoprazole 40 MG VIAL IVP SCH ×2 (12:27→21:28)
[2018-01-05] MEDS: Carvedilol 3.125 MG TAB PO SCH ×2 (12:27→21:28)
[2018-01-05] MEDS: Folic Acid 1 MG TAB PO SCH (12:27)
[2018-01-05] MEDS ORDERED: Clopidogrel Bisulfate 75 MG TAB PO SCH (18:00)
[2018-01-05] MEDS: Insulin Regular 300 UNITS/3 ML VIAL SC PRN (18:34)
[2018-01-06] MEDS: Levothyroxine Sodium 75 MCG TAB PO SCH (05:35)
[2018-01-06 06:07] LABS: Hemoglobin 9.6 g/dL (14.0-18.0)
[2018-01-06] MEDS: Polyethylene Glycol 3350 17 GM Packet PO SCH (08:16)
[2018-01-06] MEDS: Atorvastatin Calcium 20 MG TAB PO SCH (08:16)
[2018-01-06] MEDS: Calcium Acetate 667 MG CAP PO SCH ×2 (08:16→11:42)
[2018-01-06] MEDS: Pantoprazole 40 MG VIAL IVP SCH (08:16)
[2018-01-06] MEDS: Carvedilol 3.125 MG TAB PO SCH (08:16)
[2018-01-06] MEDS: Folic Acid 1 MG TAB PO SCH (08:16)
--- NOTE | 2018-01-06 10:22 | PDOC.PN ---
- Subjective Encounter Start Date: 01/06/18 Encounter Start Time: 10:19 Mr. Penn was seen today in follow-up of GI bleed. He does not have any complaints this morning. - Objective Resuscitation Status: Resuscitation Status FULL:Full Resuscitation MAR Reviewed: Yes Vital Signs & Weight: Vital Signs (12 hours) Temp Pulse Resp BP Pulse Ox 01/06/18 04:00 98.6 F 78 12 131/63 99 01/06/18 00:00 98.2 F 79 12 106/67 100 Weight Weight 157 lb I&O: 01/05/18 01/06/18 01/07/18 06:59 06:59 06:59 Intake Total 680 898 Output Total 500 2300 Balance 180 -1402 Result Diagrams: 01/06/18 04:44 01/02/18 04:14 Additional Labs: Accuchecks 01/06/18 01/05/18 01/05/18 05:59 17:15 12:31 POC Glucose 134 H 151 H 113 H 01/05/18 05:33 POC Glucose 119 H Phys Exam - Physical Examination HEENT: PERRLA Respiratory: no wheezing, no rales, no rhonchi, clear to auscultation bilateral Cardiovascular: RRR, no significant murmur, no rub Gastrointestinal: soft, non-tender, no distention, positive bowel sounds Musculoskeletal: no edema Dx/Plan (1) Lower GI bleed Code(s): K92.2 - GASTROINTESTINAL HEMORRHAGE, UNSPECIFIED Status: Acute (2) Ischemic colitis Code(s): K55.9 - VASCULAR DISORDER OF INTESTINE, UNSPECIFIED Status: Acute (3) Coronary artery disease (CAD) excluded Code(s): Z03.89 - ENCNTR FOR OBS FOR OTH SUSPECTED DISEASES AND COND RULED OUT Status: Chronic (4) ESRD (end stage renal disease) on dialysis Code(s): N18.6 - END STAGE RENAL DISEASE; Z99.2 - DEPENDENCE ON RENAL DIALYSIS Status: Chronic (5) Hypertension Code(s): I10 - ESSENTIAL (PRIMARY) HYPERTENSION Status: Chronic (6) Diabetes mellitus type 2 in nonobese Code(s): E11.9 - TYPE 2 DIABETES MELLITUS WITHOUT COMPLICATIONS Status: Chronic - Plan * GI- bleed due to ischemic colitis- his H&H has been stable * DM- blood glucose is stable * HTN- blood pressure is stable * Home today, after PT evaluation.
[2018-01-06] MEDS: Insulin Regular 300 UNITS/3 ML VIAL SC PRN (11:45)
[2018-01-06 13:11] VITALS: TEMP 98
[2018-01-06 15:17] VITALS: BP 131/56
--- NOTE | 2018-01-07 06:00 | DIS ---
DATE OF ADMISSION: 01/01/2018 DATE OF DISCHARGE: 01/06/2018 PRIMARY CARE PHYSICIAN: Dr. Prem Corrales. DISCHARGE DISPOSITION: Home. PRIMARY DISCHARGE DIAGNOSES: 1. Lower gastrointestinal bleed secondary to ischemic colitis. 2. Acute blood loss anemia. 3. End-stage renal disease, on hemodialysis. 4. Diabetes mellitus type 2. 5. Hypertension. DISCHARGE MEDICATIONS: Include: 1. Protonix 40 mg twice daily. 2. Tramadol 50 mg q.6 as needed. 3. Senna 8.6 mg p.r.n. 4. MiraLAX 17 g daily. 5. Zofran 4 mg q.6 as needed. 6. Loperamide 2 mg as directed. 7. Levothyroxine 75 mcg p.o. daily. 8. Lactulose p.r.n. t.i.d. 9. Isosorbide mononitrate extended release 30 mg daily. 10. Hydroxyzine 25 mg q.6 as needed. 11. Folic acid 1 mg daily. 12. Benadryl 25 mg q.6 as needed. 13. Plavix 75 mg daily. 14. Clonidine 0.1 mg q.6 as needed. 15. Vitamin D3 at 2000 units p.o. daily. 16. Carvedilol 3.125 twice a day. 17. Calcium carbonate 500/1000 mg daily. 18. Calcium acetate 1334 mg t.i.d. 19. Atorvastatin 20 mg daily. 20. Aspirin 81 mg daily. 21. Tylenol 325 mg q.6 as needed. PROCEDURES DONE DURING ADMISSION: The patient had an upper and lower endoscopy, the findings of which, in the upper endoscopy, there was normal-appearing mucosa to the proximal and midesophagus. There were some linear ulcerations in the distal esophagus extending from the GE junction. No stigmata of bleeding and there were minimal clots. There was LA grade B reflux and erosive gastritis. Multiple erosions in the gastric antrum. In the colonoscopy, there were circumferential regions of mucosal erythema and small ulceration seen at the hepatic flexure consistent with ischemic colitis. Multiple large ulcers seen in the distal rectum, also concerning for ischemic colitis or possible infectious process and small internal hemorrhoids. CODE STATUS: Full code. ALLERGIES: NO KNOWN DRUG ALLERGIES. HOSPITAL COURSE: Mr. Penn is a pleasant 72-year-old gentleman who recently suffered a non-ST segment elevated TN as well as pneumonia and was recovering in rehab when he began having melenic stools. He was sent over to our facility for further evaluation. Also, in addition to melenic stool, he was also having bright red blood per rectum as well. He was found to have an acute blood loss anemia with a hemoglobin of 5.8. He required 3 units of blood and transfusions to be stabilized. GI was consulted and he underwent upper and lower endoscopy. The above findings noted. He had some findings consistent with esophagitis in the upper endoscopy as well as rectal ulcers. He had been on aspirin and Plavix which were held for a few days. He was placed on IV proton pump inhibitor as well. After being stabilized and monitoring his H and H off the aspirin and Plavix, these were reintroduced. He was again monitored for another day and his hemoglobin remained stable. Therefore, he was transferred home as he had completed at the termination of his stay at rehab when he had been admitted to our facility and he is to follow up with his primary care physician in 1 to 2 weeks. Job ID: [id number]
== END 2018-01-06 15:05 | disposition home or self-care (01) | DRG 377 ==
LOC: ERS 21:14 → 2NO 21:30
PROVIDERS: ADMIT Internal Medicine; ATTEND Internal Medicine
PROC: 0DB68ZX Excision of Stomach, Via Natural or Artificial Opening Endoscopic, Diagnostic (ICD-10-PCS; principal; 2018-01-03)
PROC: 0DBL8ZX Excision of Transverse Colon, Via Natural or Artificial Opening Endoscopic, Diagnostic (ICD-10-PCS; 2018-01-03)
PROC: 30233N1 Transfusion of Nonautologous Red Blood Cells into Peripheral Vein, Percutaneous Approach (ICD-10-PCS; 2018-01-03)
DX: K92.2 Gastrointestinal hemorrhage, unspecified (principal); N18.6 End stage renal disease; K55.9 Vascular disorder of intestine, unspecified; K51.90 Ulcerative colitis, unspecified, without complications; K62.6 Ulcer of anus and rectum; D62 Acute posthemorrhagic anemia; I12.0 Hypertensive chronic kidney disease with stage 5 chronic kidney disease or end stage renal disease; K21.0 Gastro-esophageal reflux disease with esophagitis; K64.8 Other hemorrhoids; I25.10 Atherosclerotic heart disease of native coronary artery without angina pectoris; I25.2 Old myocardial infarction; E11.22 Type 2 diabetes mellitus with diabetic chronic kidney disease; Z99.2 Dependence on renal dialysis
CPT/HCPCS: 36415; 36416; 36430; 71045; 74174; 80048; 80053; 82607; 82746; 83540; 83550; 85014; 85018; 85025; 86850; 86900; 86901; 88305; 88312; 90471; 90670; 90935; C9113; G0009; G0257; G8978-GP-CN; G8979-GP-CK; G8987-GO-CJ; G8988-GO-CH; J1815; J2704; P9016; Q4081